=== PATIENT | female | born 1980 | race Caucasian/White ===

== ENCOUNTER 2019-05-17 20:00 | Emergency (ER) | payer OTHER, SELFPAY ==
--- NOTE | ~2019-05-17 | CT_ITS ---
EXAMINATION: CT abdomen pelvis w con DATE: 05/17/2019 23:07 INDICATION: Right upper quadrant pain TECHNIQUE: Computed tomography (CT) of the abdomen and pelvis was performed with 100 cc Omnipaque 350 intravenous contrast. The dose-length product was 1646.69 mGy-cm. Automated exposure control and ite rative reconstruction technique were employed. COMPARISON: No prior studies for comparison. FINDINGS: Lung bases unremarkable. Heart size normal. No significant vascular abnormality. Fatty infiltration of the liver. The spleen, pancreas, adrenal glands are unremarkable. Gallbladder i s present. There are bilateral low density lesions of the kidneys, largest measuring 2.8 cm, compatib le with cysts. There is a 2 mm nonobstructing right renal stone. Nonobstructive bowel gas pattern. There is a 4.3 cm right ovarian cyst. There are surgical changes of tubal ligation. Mild lumbar spondylosis. There is surgical change of ventral abdominal wall hernia r epair. IMPRESSION: 1. No acute abdominal abnormality. 2: 2 mm nonobstructing right renal stone. 3: 4.3 cm right ovarian cyst Reviewed, dictated and finalized at location A. E DISPOSAL LEAKAGE TESTER
[2019-05-17 20:17] VITALS: BP 153/109; PULSE 99; RESP 18; TEMP 37.2; O2SAT 99
[2019-05-17 20:32] LABS: Basophils Percent Auto 0.3 % (0.2-1.2); Eosinophils Absolute Auto 0.4 K/mm3 (0-0.3); Eosinophils Percent Auto 2.6 % (0-4.4); Hematocrit 41.6 % (37.0-47.0); Hemoglobin 13.6 g/dL (12.0-15.0); Immature Granulocyte Absolute 0.04 K/mm3 (0.00-0.031); Immature Granulocyte Percent A 0.3 % (0-0.5); Lymphocytes Absolute Auto 4.66 K/mm3 (0.9-3.2); Lymphocytes Percent Auto 32.7 % (18.3-44.2); Mean Corpuscular HGB Conc 32.7 g/dl (32-36); Mean Corpuscular Hemoglobin 30.9 pg (26-34); Mean Corpuscular Volume 94.5 fl (80-100); Mean Platelet Volume 10.1 fl (7.4-10.4); Monocytes Absolute Auto 0.9 K/mm3 (0.1-0.6); Neutrophils Absolute Auto 8.3 K/mm3 (1.3-6.7); Neutrophils Percent Auto 58.1 % (45.5-73.1); Platelet Count Result 293 k/mm3 (150-375); Red Cell Distribution Width 13.5 % (11.5-14.5); White Blood Count 14.3 K/mm3 (4.5-10.0)
[2019-05-17 20:41] LABS: Add Urine Microscopic? YES; Appearance Urine Cloudy (Clear); Bacteria Urine Trace /hpf; Bilirubin Urine Negative (Negative); Blood Urine 1+ (Negative); Color Urine Yellow (Yellow); Glucose Urine UA Negative (Negative); Ketones Urine Negative (Negative); Leukocyte Esterase Ur Negative LEU/UL (Negative); Mucus Urine Rare /lpf; Nitrate Urine Negative (Negative); Protein Urine Negative (Negative); Specific Grav Ur 1.017 (1.001-1.035); Squamous Epithelial Cell Urine Many /hpf (Few); Urobilinogen Urine Negative mg/dL (<2.0)
[2019-05-17 20:43] LABS: Alanine Aminotransferase 64 U/L (4-35); Albumin Level 3.9 g/dL (3.5-5.1); Alkaline Phosphatase 90 U/L (38-126); Aspartate Amino Transferase 28 U/L (14-36); Bilirubin,Total 0.2 mg/dL (0.2-1.3); Blood Urea Nitrogen 14 mg/dL (7-17); Calcium 9.2 mg/dL (8.4-10.2); Carbon Dioxide 23 mmol/L (22-30); Chloride 100 mmol/L (98-107); Estimated CRCL calculation 93 ml/min; Estimated Glomerular Filt Rate > 60; Glucose 113 mg/dL (65-105); Lipase 82 U/L (23-300); Potassium 3.8 mmol/L (3.4-5.0); Sodium 133 mmol/L (137-145)
[2019-05-17 20:55] VITALS: BP 132/82; PULSE 98; RESP 20; TEMP 36.8; O2SAT 96
--- NOTE | 2019-05-17 21:25 | ED.ABDPAIN ---
HPI - Abdominal Pain General Chief Complaint: Abdominal Pain Stated Complaint: abd pain Time Seen by Provider: 05/17/19 21:17 Source: patient and RN notes reviewed Mode of arrival: other Limitations: no limitations History of Present Illness HPI narrative: Pt is a 38 y/o female who presents to the ED with c/o intermittent 8/10 RUQ ABD pain that began a week ago, but has been more constant today. She notes that her sx are aggravated after eating. Pt notes that her PCP ordered an US to check her gallbladder on 05/23/19. 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 Pt reports nausea, diarrhea with 5-6 episodes for the past 3 days, and chills, but denies vomiting, SOB, sore throat, and a fever. MD elicited complaint: abdominal pain Pain Consistency: constant (today) Location: RUQ Severity: severe Pain scale (0-10): 8 Exacerbating factors: eating Associated symptoms: nausea, diarrhea (with 5-6 episodes for the past 3 days) and chills Treatments prior to arrival: other (none) Related Data Home Medications Medication Instructions Recorded Confirmed baclofen 10 mg BID 05/10/19 05/10/19 cyanocobalamin (vitamin B-12) 1,000 mcg MONTHLY 05/10/19 05/10/19 diclofenac sodium 75 mg PO BID 05/10/19 05/10/19 Allergies Allergy/AdvReac Type Severity Reaction Status Date / Time No Known Allergies Allergy Verified 05/10/19 13:40 codeine AdvReac Mild Nausea Verified 05/10/19 13:39 Review of Systems Review of Systems: All systems reviewed & are unremarkable except as noted in HPI and below Constitutional: Constitutional: Reports chills and Denies fever(s) ENT: Denies sore throat Respiratory: Respiratory: Denies dyspnea Gastrointestinal: Gastrointestinal: Reports diarrhea (with 4-5 episodes daily for the past 3 days), Reports nausea and Denies vomiting PMFSH Past Medical History Medical History (Updated 05/17/19 @ 23:53 by Romie Torres MD) Chronic back pain Inguinal hernia Surgical History Surgical History (Updated 05/10/19 @ 13:54 by CE Live) H/O inguinal hernia repair H/O tubal ligation H/O: History of appendectomy Social History Social History (Updated 05/17/19 @ 23:46 by Merle Johnson Smoking packs per day: 0.5 Smoking cigarettes per day: 10.0 Smoking status: Current every day smoker Alcohol intake: never Gender identity (if verbalized by the patient): Female Exam Const: General: healthy appearing and no acute distress Nutritional Appearance: obese HENMT: Mouth: Yes lip normal and Yes moist mucous membranes Eyes: Conjunctivae: conjunctivae normal Pupils: Equal, round and reactive pupils present Resp: Effort & Inspection: normal respiratory effort Auscultation: clear to auscultation bilaterally Cardio: Rate: regular rate Rhythm: regular rhythm GI: GI Palp: Yes abdominal tenderness (RUQ) and Yes Soft to palpation Auscultation: normal bowel sounds Back/Spine/Pelvis: Back: other (Full ROM) Skin: General skin exam: normal color, dry skin and other (warm) Neuro: General: patient oriented x3 and other (alert) Speech: normal speech Extrem: General: full ROM Psych: Mental Status: mental status grossly normal Affect: normal affect Course Vital Signs Vital signs: Vital Signs Temperature 37.2 C 05/17/19 20:17 Pulse Rate 99 05/17/19 20:17 Respiratory Rate 18 05/17/19 20:17 Blood Pressure 153/109 H 05/17/19 20:17 Pulse Oximetry 99 05/17/19 20:17 Temperature 36.8 C 05/17/19 20:55 Pulse Rate 87 05/18/19 00:28 Respiratory Rate 20 05/18/19 00:28 Blood Pressure 147/98 H 05/18/19 00:28 Pulse Oximetry 98 05/18/19 00:28 MDM - Abdominal Pain MDM Narrative Medical decision making narrative: No findings to explain pain oon CT or labs. Will start empirical treatment for GERD/gastritis and have her follow-up for further evaluation. Differential Diagnosis Differential diagnosis: Likely other (Cholelithiasis, gastritis, GERD, ot
[2019-05-17] MEDS: ONDANSETRON INJ 4 MG/2 ML VIAL IV PUSH (22:06)
[2019-05-17 23:37] VITALS: BP 133/54; PULSE 85; RESP 24; O2SAT 96
[2019-05-18 00:28] VITALS: BP 147/98; PULSE 87; RESP 20; O2SAT 98
--- NOTE | 2019-05-18 00:30 | PC.NURSE ---
this rn d/c 20g IV in right hand that previous nurse placed. tip intact, pressure dressing applied,.
== END 2019-05-18 00:31 | disposition home or self-care (01) ==
PROVIDERS: Emergency Medicine; Emergency Provider Emergency Medicine; PCP Nurse Practitioner Family
DX: R10.13 Epigastric pain (principal); N20.0 Calculus of kidney; N83.201 Unspecified ovarian cyst, right side; F17.210 Nicotine dependence, cigarettes, uncomplicated
CPT/HCPCS: 36415; 74177; 80053; 81001; 81025; 83690; 85025; 96374; 96375; 99284; A9270; J2405; J3010; Q9967

== ENCOUNTER 2019-05-23 09:00 | Outpatient (CLI) | payer OTHER, SELFPAY ==
--- NOTE | ~2019-05-23 | US_ITS ---
EXAMINATION: US right upper quadrant EXAM DATE: 05/23/2019 09:46 INDICATION: Right upper quadrant pain. Elevated liver function tests. TECHNIQUE: Multiple grayscale and Doppler images of the abdomen right upper quadrant were obtained (b y a technologist who performed the scan) and subsequently reviewed. There is no prior study for raiza muñoz. FINDINGS: The pancreatic head and body are normal in appearance. The pancreatic tail is not visualized. Mildl y echogenic liver parenchyma, hepatic steatosis. There are no focal liver lesions identified. Ther e is no evidence of intrahepatic biliary duct dilation. Portal venous flow was seen in the hepatoped al, normal direction and has normal Doppler waveform. No right-sided hydronephrosis. Common bile duct measures 2-3 mm, which is normal. The gallbladder wall is normal in thickness, with expected amount of distention. No sonographic evidence of pericholecystic fluid. There is no cholel ithiases. Technologist performing exam reports patient did not demonstrate sonographic Banegas's sign. Please note that this sign is less reliable in patients who have received pain medication. IMPRESSION: 1. Hepatic steatosis. Reviewed, dictated and finalized at location A. OGRAMMETRIC COMPILATION SPECIALIST IMPRESSION: 1. Hepatic steatosis.
== END 2019-05-23 09:01 | disposition home or self-care (01) ==
PROVIDERS: PCP Nurse Practitioner Family; Visit Provider Nurse Practitioner Family
DX: R10.84 Generalized abdominal pain (principal); K76.0 Fatty (change of) liver, not elsewhere classified
CPT/HCPCS: 76705

== ENCOUNTER 2020-04-02 09:26 | Outpatient (CLI) | payer OTHER, SELFPAY ==
--- NOTE | 2020-04-02 09:29 | ECG_ITS ---
Measurements Intervals [place] Rate: 71 P: 33 ME: 193 QRS: 12 QRSD: 110 T: 13 QT: 389 QTc: 424 Interpretive Statements SINUS RHYTHM INTRAVENTRICULAR CONDUCTION DELAY POOR R WAVE PROGRESSION, ANTERIOR LEADS BASELINE ARTIFACT- I, III, AVL, AVF BORDERLINE ECG Electronically Signed On 04-02-2020 9:43:12 CLINICAL PHARMACY TECHNICIAN by Edgar Lord D.O.
== END 2020-04-02 09:27 | disposition home or self-care (01) ==
LOC: ANHSURGERY 09:29
PROVIDERS: PCP Nurse Practitioner Family; Visit Provider Obstetrics & Gynecology
DX: Z72.0 Tobacco use (principal); I45.9 Conduction disorder, unspecified
CPT/HCPCS: 93005

== ENCOUNTER 2020-04-04 00:36 | Outpatient (CLI) | payer OTHER, SELFPAY ==
[2020-04-04 18:59] LABS: SARS-CoV-2 RNA PCR Negative
== END 2020-04-04 00:37 | disposition home or self-care (01) ==
LOC: ANHCOVIDDT 00:36
PROVIDERS: PCP Nurse Practitioner Family; Visit Provider Obstetrics & Gynecology
DX: Z01.812 Encounter for preprocedural laboratory examination (principal); Z20.828 Contact with and (suspected) exposure to other viral communicable diseases
CPT/HCPCS: 87635; C9803; U0003

== ENCOUNTER 2020-04-08 01:11 | Day surgery (SDC) | payer OTHER, SELFPAY ==
[2020-03-30 19:08] VITALS: BMI 51.4
[2020-04-08] VITALS (7 sets, daily range): BP systolic 118–148; BP diastolic 59–76; PULSE 58–89; RESP 14–20; TEMP 36.1–36.3; O2SAT 95–100
[2020-04-08] MEDS: ACETAMINOPHEN 500 MG TABLET 1000 MG PO (13:05)
[2020-04-08] MEDS: KETOROLAC 15 MG/ML VIAL (*BKC) IV PUSH (13:05)
[2020-04-08] MEDS: LACTATED RINGERS 1,000 ML 30 ML IV CONT (13:06)
[2020-04-08 13:50] LABS: Beta HCG Quantitative < 2.39 mIU/ML
--- NOTE | 2020-04-08 13:53 | WPDANESEPPF ---
Anes - Initial Pre Proc Eval Procedure: Operation Date: 04/08/20 14:30 Proposed Procedures p Laparoscopic Right Ovarian Cystectomy - Walt Mendoza MD Date/Time: 04/08/20 13:53 Surgeon: Walt Mendoza MD Pre Op Diagnosis: Right Ovarian Cyst Patient Data Age: 39 Gender: F Height: 1.68 m Weight: 145 kg Last Vital Signs Temp 36.3 C L 04/08/20 12:42 Pulse 89 04/08/20 12:42 Resp 20 04/08/20 12:42 BP 148/66 H 04/08/20 12:42 Pulse Ox 99 04/08/20 12:42 Allergies Allergy/AdvReac Type Severity Reaction Status Date / Time No Known Allergies Allergy Verified 04/08/20 13:20 Home Medications Medication Instructions Recorded Confirmed Type baclofen 10 mg BID 05/10/19 04/08/20 History cyanocobalamin (vitamin B-12) 1,000 mcg MONTHLY 05/10/19 04/08/20 History diclofenac sodium 75 mg PO BID 05/10/19 04/08/20 History fluticasone propion-salmeterol 1 inh INHALATION Q12H 03/30/20 04/08/20 History [Wix[facility] Inhub] Laboratory Tests 04/08/20 13:07 Beta HCG, Quant < 2.39 mIU/ML mIU/ML Patient hx anesthesia problems: none Family hx anesthesia problems: none PMFSH Past Medical History Medical History (Updated 06/24/19 @ 07:27 by Mauro Mays APRN) Chronic back pain Inguinal hernia Surgical History Surgical History (Updated 05/10/19 @ 13:54 by CE Live) H/O inguinal hernia repair H/O tubal ligation H/O: History of appendectomy Family History Family History Father Patient's father is in good health Sibling Patient's brother is in good health Mother Family history of alcoholism Patient's mother is Family history of liver disease Other Diabetes mellitus Social History Social History (Updated 05/17/19 @ 23:46 by Merle Newton) Smoking packs per day: 1 Smoking cigarettes per day: 20.0 Years smoked: 21 Smoking pack-years: 21.00 Smoking status: Current every day smoker Tobacco type: cigarettes Alcohol intake: never Living arrangements: with family Gender identity (if verbalized by the patient): Female Spiritual care concerns: No Anes - Eval Final PreProcedure Day of Procedure 04/08/20 13:53 Patient weight: super morbidly obese Heart: regular rate and rhythm Lungs: clear to auscultation and normal air movement Airway: Mallampati scale class II Neurological: alert and oriented Last oral intake: >/= 8 hours ASA classification: III Emergent: no Anesthetic plan: proceed Anesthesia type and monitoring: general ETT and standard monitoring Informed Consent: The patient's anesthetic plan and its attendant risks and benefits were discussed with the patient/family/POA. Questions were solicited and answers provided to the satisfaction of the patient/family/POA.
--- NOTE | 2020-04-08 14:56 | WPDHPUPDATE1 ---
History and Physical Update Update Date/Time: 04/08/20 14:56 History and Physical has been reviewed, including an updated exam of the patient. There are NO changes in the patient's condition. Risks, benefits, and alternatives have been discussed and questions answered. Patient agrees to proceed with procedure.
--- NOTE | 2020-04-08 16:18 | P.OP_ITS ---
Procedure Note - Detailed Date of procedure: 04/08/20 Pre-op diagnosis: Right Ovarian Cyst Procedure performed: Laparoscopic bilateral ovarian cystectomy, right salpingectomy Description of procedure: The patient was taken the operating room. She was prepped and draped in the dorsal lithotomy position after induction of general anesthesia. A 5 mm left upper quadrant incision was made in the abdominal skin with a scalpel. A 5 mm trocar was inserted the intra-abdominal cavity under direct visualization of the scope. A 5 mm left lower quadrant incision was made with the scalp on the abdominal skin and a 5 mm trocar was inserted the intra- abdominal cavity under direct visualization of the scope. A 5 mm infraumbilical incision was made with scalpel and a 5 mm trocar was inserted into the intra- abdominal cavity under direct visualization of the scope. Bilateral ovarian cystectomy was performed using sharp blunt dissection. Multiple small cysts were transected and cauterized on each ovary. Two cyst capsules were removed from the right ovary. This was done with sharp dissection and cautery. The samples were submitted for pathologic evaluation. The right fallopian tube was removed. The paratubal tissue was cauterized transected in from the para ovarian area around to the cornu of the uterus. The fallopian tube was taken at the left lower quadrant trocar site. There were numerous paratubal cyst on the right ovary, none on the left side. The pelvis was irrigated with copious amounts of normal saline. The pneumoperitoneum was reduced. The trocars were removed. The patient was taken recovery room stable condition. Sponge lap and needle counts were correct x2. Anesthesia: GETA Surgeon: Walt Mendoza MD Estimated blood loss (mL): 20 Drains: No Packing: No Complications: No immediate complications Condition: stable Disposition: PACU Findings: Paratubal cysts on the right ovary, numerous. Multiple bilateral ovarian cysts. Normal-appearing uterus and posterior cul-de-sac, and dome of the bladder.
[2020-04-08] MEDS: fentaNYL CITRATE INJ (*CRX) 100 MCG/2 ML VIAL 25 MCG IV PUSH ×4 (16:32→16:48)
== END 2020-04-08 18:03 | disposition home or self-care (01) ==
PROVIDERS: PCP Nurse Practitioner Family; Visit Provider Obstetrics & Gynecology
PROC: (CPT 49320; principal; 2020-04-08 14:30)
DX: N83.01 Follicular cyst of right ovary (principal); F17.210 Nicotine dependence, cigarettes, uncomplicated; E66.01 Morbid (severe) obesity due to excess calories; Z68.43 Body mass index [BMI] 50.0-59.9, adult
CPT/HCPCS: 58662; 58661; 36415; 84702; 88302; 88305; A9270; J0330; J1100; J1885; J2001; J2250; J2405; J2704; J3010; J7120

== ENCOUNTER 2021-01-15 17:11 | Emergency (ER) | payer OTHER, SELFPAY ==
--- NOTE | ~2021-01-15 | XR_ITS ---
EXAMINATION: XR knee LT 3V DATE: 01/15/2021 18:21 INDICATION: Left knee pain TECHNIQUE: Three views of the left knee were obtained. COMPARISON: 10/21/2017 FINDINGS: There is questionable irregularity of the medial tubercle of the intercondylar eminence of the tibia. Joint spaces are normal with no erosions. No joint effusion/synovitis. There is mild sof t tissue swelling surrounding the knee. IMPRESSION: 1. Possible irregularity of the medial tubercle of intercondylar eminence of the tibia which could re flect nondisplaced fracture in the proper clinical setting Reviewed, dictated and finalized at location A. IMPRESSION: 1. Possible irregularity of the medial tubercle of intercondylar eminence of th e tibia which could reflect nondisplaced fracture in the proper clinical settin g
[2021-01-15 17:19] VITALS: BP 135/69; PULSE 91; RESP 20; TEMP 36.3; O2SAT 99
--- NOTE | 2021-01-15 18:01 | ED.LOWEXIN ---
HPI - Extremity Injury (Lower) General Chief Complaint: Extremity Injury, Lower Stated Complaint: left knee/rt hip pain Time Seen by Provider: 01/15/21 17:49 Source: patient and RN notes reviewed Mode of arrival: ambulatory Limitations: no limitations History of Present Illness HPI Narrative: Patient presents today complaining of pain to her right hip and left knee x2 to 3 weeks, worse over the last 4 days. 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 She denies any specific injuries, falls. She currently rates her knee pain 9/10, which increases with bending. She has been taking Tylenol and ibuprofen without relief. The right hip hurts to a lesser degree. Denies numbness or tingling. MD complaint: other (Right hip pain, left knee pain) Related Data Home Medications Medication Instructions Recorded Confirmed baclofen 10 mg BID 05/10/19 04/08/20 cyanocobalamin (vitamin B-12) 1,000 mcg MONTHLY 05/10/19 04/08/20 diclofenac sodium 75 mg PO BID 05/10/19 04/08/20 Allergies Allergy/AdvReac Type Severity Reaction Status Date / Time No Known Allergies Allergy Verified 04/08/20 13:20 Review of Systems Review of Systems: CONSTITUTIONAL: Denies body aches, fever, chills, or sweats. EYES: Denies visual changes, redness, or discharge. ENT: Denies rhinorrhea, congestion, sore throat, or otalgia. CARDIOVASCULAR: Denies chest pain, palpitations, or edema. RESPIRATORY: Denies cough or dyspnea. GASTROINTESTINAL: Denies abdominal pain, nausea, vomiting, or diarrhea. GENITOURINARY: Denies dysuria or hematuria. SKIN: Denies rash, itching, or wounds. MUSCULOSKELETAL: Denies back pain, or myalgia. + Hip pain, left knee pain NEUROLOGIC: Denies headache, numbness, tingling, or weakness. PSYCH: Denies depression or anxiety. [facility] Past Medical History Medical History Chronic back pain Inguinal hernia Surgical History Surgical History H/O inguinal hernia repair H/O tubal ligation H/O: History of appendectomy Family History Family History Father Patient's father is in good health Sibling Patient's brother is in good health Mother Family history of alcoholism Patient's mother is Family history of liver disease Other Diabetes mellitus Social History Social History Smoking packs per day: 1 Smoking cigarettes per day: 20.0 Years smoked: 21 Smoking pack-years: 21.00 Smoking status: Current every day smoker Tobacco type: cigarettes Alcohol intake: never Gender identity (if verbalized by the patient): Female Spiritual care concerns: No Comments At time of signature, I have reviewed and agree with nursing past medical, surgical, social and family history unless otherwise noted. Please see nursing chart for further information. There is no relevant family history pertinent to the presenting complaint Exam Narrative: GENERAL: Well-appearing, well-nourished, and in no acute distress. HEAD: Normocephalic, atraumatic. EYES: EOMI. No redness or drainage. Conjunctivae normal. ENT: Mucous membranes pink and moist. NECK: Normal AROM. CHEST: No respiratory distress. EXTREMITIES: Right hip: Mild tenderness to the lateral hip. Full range of motion with mild increased pain. Distal sensation intact. Capillary refill normal. Pedal pulse normal. Left knee: General mild tenderness about the anterior knee to light touch. No edema noted. No erythema or ecchymosis noted. Pain with range of motion. Distal sensation intact. Capillary refill normal. Pedal pulse normal. SKIN: Warm, dry, no rash. Capillary refill normal. Normal skin turgor. NEURO: No focal defici
== END 2021-01-15 19:27 | disposition home or self-care (01) ==
PROVIDERS: Emergency Provider Nurse Practitioner; PCP Nurse Practitioner Family
DX: S82.192A Other fracture of upper end of left tibia, initial encounter for closed fracture (principal); X58.XXXA Exposure to other specified factors, initial encounter; S76.011A Strain of muscle, fascia and tendon of right hip, initial encounter; F17.210 Nicotine dependence, cigarettes, uncomplicated
CPT/HCPCS: 73562; 99214; G0463; L1830

== ENCOUNTER → 2021-04-27 01:03 | Outpatient (CLI) | payer OTHER, SELFPAY ==
[2021-04-28 08:36] LABS: SARS-CoV-2 RNA PCR Negative
== END ==
PROVIDERS: PCP Nurse Practitioner Family; Visit Provider Nurse Practitioner Family
DX: Z20.822 Contact with and (suspected) exposure to COVID-19 (principal)
CPT/HCPCS: C9803; U0003; U0005